=== PATIENT | female | born 1990 | race Caucasian/White ===

== ENCOUNTER 2024-08-29 20:11 | Emergency (ER) | payer SELFPAY ==
[~2024-08-29] VITALS: Ht 167.6 cm; Wt 63.6 kg
[2024-08-29 20:21] VITALS: TEMP 98.6
[2024-08-29 20:44] LABS: APPEARANCE,URINE CLEAR (CLEAR); GLUCOSE, URINE (UA) NEGATIVE (NEGATIVE); LEUKOCYTE ESTERASE ,URINE NEGATIVE (NEGATIVE); NITRATE,URINE NEGATIVE (NEGATIVE); OCCULT BLOOD,URINE NEGATIVE (NEGATIVE); SPECIFIC GRAVITIY, URINE 1.025 (1.003-1.030)
[2024-08-29 20:50] LABS: PLATELET COUNT (AUTO) 265 K/uL (150-450); RED BLOOD CELL COUNT(AUTO) 5.14 MIL/uL (4.00-5.20); RED CELL DISTRIBUTION WIDTH 12.8 % (11.5-14.5); WHITE BLOOD COUNT (AUTO) 10.0 K/uL (4.5-11.0)
[2024-08-29 21:03] LABS: CALCIUM, TOTAL 8.7 mg/dL (8.8-10.5); CREATININE 1.15 mg/dL (0.60-1.30); GLOMERULAR FILTR. RATE CALC 55.0 mL/min (>60); GLUCOSE,RANDOM 105.0 mg/dL (70-110); SODIUM SERUM 137.0 mmol/L (136-145); UREA NITROGEN, BLOOD 13.0 mg/dL (7-18)
[2024-08-29 21:11] LABS: HCG,QUANTITATIVE 1 mIU/mL (0-6)
[2024-08-29] MEDS: SODIUM CHLORIDE 0.9% 1,000 ML IV ONE (21:21)
[2024-08-29] MEDS: FAMOTIDINE 20 MG/2 ML VIAL IVP ONE (21:21)
[2024-08-29] MEDS ORDERED: DICY-1 PO (21:29)
[2024-08-29 22:30] VITALS: BP 119/76; PULSE 68; RESP 16; O2SAT 100
== END 2024-08-29 23:18 | disposition home or self-care (01) ==
LOC: EMS 20:16
DX: K52.9 Noninfective gastroenteritis and colitis, unspecified (principal); N89.8 Other specified noninflammatory disorders of vagina
CPT/HCPCS: 99284; 96374; 96361; 80048; 81001; 83690; 84702; 85025; 36415; 74018; J3490; J7030